=== PATIENT | male | born 1965 | race Caucasian/White ===

== ENCOUNTER 2023-12-20 08:37 | Emergency (ER) | payer OTHER, SELFPAY ==
[2023-12-20 08:39] VITALS: BP 183/96
[2023-12-20 08:46] VITALS: BMI 31.0
[2023-12-20] MEDS: TORADOL 15 MG IV (09:04)
[2023-12-20 09:07] VITALS: BP 157/96
--- NOTE | 2023-12-20 09:09 | ED.GENMED ---
History of Present Illness
General
Chief Complaint: Abdominal Pain
Time Seen by Provider: 12/20/23 08:43
History of Present Illness
History of Present Illness:
58-year-old male with history of GERD presenting to the emergency department for right upper quadrant abdominal pain. Patient reports symptoms started acutely last evening around 11 PM. Notes pain has been constant. Denies associated nausea or
vomiting. Denies any changes in his stool. Did take a Pepcid without any relief. Reports that he has had episodes of pain in the past, however usually resolve on their own. Has been told in the past that he has gallstones, however has never had
issues with his gallbladder. Denies any surgical history. Denies any fever or systemic symptoms. Denies chest pain. Pain is worse with deep inspiration, however denies difficulty breathing. Denies additional acute medical complaints
Phy Exam
Physical Exam
Physical Exam:
General: Well-appearing, no clinical signs of dehydration, nontoxic and in no acute distress
HEENT: protecting airway
Neck: appears supple
CV: Normal heart rate, regular rhythm, no evidence of cyanosis
Resp: No accessory muscle use, no increased work of breathing, lungs clear to auscultation bilaterally
Abd: Positive Mazariegos sign with focal tenderness of the right upper quadrant, normal bowel sounds
Extremities: No deformities, no swelling
Neuro: alert, no focal neurologic deficit
: deferred
Rectal: deferred
Psych: Normal affect
Skin: Intact
Course
Orders/Labs/Results
Orders:
Orders
12/20/23 08:55
CMP [Comprehensive Metabolic Panel] Urgent
Complete Blood Count/With Diff Urgent
Lipase Urgent
12/20/23 08:57
Ketorolac [Toradol] 15 mg IV NOW STA
12/20/23 09:01
US Abdomen Complete/Upper Urgent
Reason For Exam: RUQ, c/o cholecystitis
Abnormal Lab Results
12/20/23
08:55
WBC 13.9 H 10^3/uL
(4.8-10.8)
Abs Immat Gran (auto) 0.1 H 10^3/uL
(0-0.05)
Absolute Neuts (auto) 10.9 H 10^3/uL
(1.4-6.5)
Absolute Monos (auto) 1.0 H 10^3/uL
(0.1-0.6)
Immature Gran % 0.6 H %
(0-0.5)
Neutrophils % 78.6 H %
(42.2-75.2)
Lymphocytes % 11.9 L %
(20.5-51.1)
Glucose 108 H mg/dl
(70-99)
Calcium 10.3 H mg/dl
(8.4-10.2)
12/20/23 08:55
12/20/23 08:55
Vital Signs
Initial and Last Documented VS:
Initial Vital Signs
Temp Pulse Resp BP Pulse Ox
97.8 F 75 16 183/96 98
12/20/23 08:39 12/20/23 08:39 12/20/23 08:39 12/20/23 08:39 12/20/23 08:39
Last Documented Vital Signs
Temp Pulse Resp BP Pulse Ox
97.8 F 75 16 140/83 95
12/20/23 08:39 12/20/23 08:39 12/20/23 08:39 12/20/23 10:19 12/20/23 10:20
MDM/Problems Addressed
MDM/Problems Addressed:
58-year-old male with history of GERD presenting for acute onset of right upper quadrant pain. Vital signs significant for high blood pressure.
On exam, patient is resting comfortably, no acute distress, however focal tenderness to the right upper quadrant with positive Mazariegos sign. Patient reports that he has been told in the past that he does have gallstones. Given physical exam
findings and history with symptom presentation, immediate concern for symptomatic cholelithiasis versus cholecystitis. Mildly tender to the epigastric region, so pancreatitis is also consideration. Will send lipase. Patient without chest pain or
difficulty breathing, without concern for ACS. Will obtain laboratory analysis and right upper quadrant ultrasound imaging. Toradol administered for pain
10:45 -patient's labs show mild leukocytosis, otherwise unremarkable. Ultrasound shows gallstones without additional signs of cholecystitis. At this time suspect symptomatic cholelithiasis. On reassessment, patient notes that his pain has
completely resolved. For this reason, feel stable for discharge with close and for follow-up with a surgeon for potential elective removal of his gallbladder. However, advised that if pain is worsening or he develops increased pain or intractable
vomiting that he is to return to the hospital. Patient verbalized understanding.
*Critical Care Note
Total Time (30-74mins, 75-104mins- exclusive of procedures): Not Applicable
ED Attending Note
-
Portions of this chart may have been created with voice recognition software.� Occasional wrong word or��sound alike� substitutions may have occurred due to the inherent limitations of voice recognition software.
Discharge Plan
Departure
Referrals:
Romulo Kimbrough MD [Family Provider] -
Interventions
Interventions:
*Risk Screen - Suicide Last Done: 12/20/23 08:39
*General Assessment Last Done: 12/20/23 08:39
*Neglect/Abuse Screening Last Done: 12/20/23 08:39
ED- Fall Risk Assessment Last Done: 12/20/23 08:46
*ED COVID-19 Vaccine History Last Done: 12/20/23 08:46
AS-Vxytwx-Foyefxxqgr Assessment Last Done: 12/20/23 08:46
Discharge Date and Time
Print Language: TRINIDADIAN
[2023-12-20 09:20] LABS: % Basophils 0.7 % (0-2); % Eosinophils 1.3 % (0-6); % Immature Granulocytes 0.6 % (0-0.5); % Lymphocytes 11.9 % (20.5-51.1); % Monocytes 6.9 % (1.7-9.3); % Neutrophils 78.6 % (42.2-75.2); Absolute Basophils 0.1 10^3/uL (0-0.2); Absolute Eosinophils 0.2 10^3/uL (0-0.7); Absolute Immature Granulocytes 0.1 10^3/uL (0-0.05); Absolute Lymphocytes 1.7 10^3/uL (1.2-3.4); Absolute Neutrophils 10.9 10^3/uL (1.4-6.5); Hematocrit 46.2 % (39.0-52.0); Hemoglobin 16.1 g/dL (13.0-18.0); Mean Corp Hgb Conc. 34.8 g/dL (33.0-37.0); Mean Corpuscular Hgb 29.5 pg (27.0-31.0); Mean Corpuscular Volume 84.6 fL (80.0-94.0); Nucleated Red Blood Cells % 0 % (-); Platelet Count 313 10^3/uL (130-400); Red Blood Cell Count 5.46 10^6/uL (4.70-6.10); Red Cell Dist. Width 12.6 % (11.5-14.5); White Blood Cell Count 13.9 10^3/uL (4.8-10.8)
[2023-12-20 09:31] LABS: ALT (SGPT) 47 U/L (0-50); AST (SGOT) 31 U/L (17-59); Albumin 4.9 g/dl (3.5-5.0); Alkaline Phosphatase 68 U/L (38-126); Blood Urea Nitrogen 18 mg/dl (9-20); Calcium 10.3 mg/dl (8.4-10.2); Carbon Dioxide 27 mmol/L (22-30); Chloride 103 mmol/L (98-107); Estimated Creatinine Clearance 84 ml/min; Glucose 108 mg/dl (70-99); Lipase 57 U/L (23-300); Potassium 4.4 mmol/L (3.5-5.1); Sodium 141 mmol/L (135-145); Total Bilirubin 0.7 mg/dl (0.2-1.3); Total Protein 7.9 g/dl (6.3-8.2); eGFR > 60.00
[2023-12-20 10:19] VITALS: BP 140/83
== END 2023-12-20 10:56 | disposition home or self-care (01) ==
LOC: EMR 08:37
PROVIDERS: EMERGENCY PHYSICIAN Student in an Organized Health Care Education/Training Program; FAMILY PHYSICIAN Internal Medicine
DX: R10.11 Right upper quadrant pain (principal); K21.9 Gastro-esophageal reflux disease without esophagitis
CPT/HCPCS: 99284; 96374; 76700; 80053; 83690; 85025